=== PATIENT | female | born 1945 | race Caucasian/White ===

== ENCOUNTER → 2017-04-11 | Outpatient (CLI) | payer OTHER, BC ==
[~2017-04-11] VITALS: Ht 152.4 cm; Wt 70.0 kg
[~2017-04-11] MED LIST: ALLERGY25 M2 PO; ASMANEX TW200 MICRO1 IH; BYDUREON2 MG SC; BYETTA PEN250 MCG/M1 SC; CALCIUM 600 MG1 EAC1 PO; CLARITIN,ALAVAR10 MG PO; CYANOCOBALAM1000 MCG PO; ENALAPRIL MALEA10 MG PO; FISH OIL 1,0001 EAC7 PO; FLAX OIL1000 MG PO; LASIX40 MG PO; LOPRESSOR100 M1 PO; LOPRESSOR50 MG PO; LOW DOSE ASPIRI81 M1 PO; NOVOLOG PE100 UNITS/ SC; POTASSIUM-9999 MG PO; PRILOSEC20 MG PO; TOPIRAMATE25 MG PO; TOUJEO SOL300 UNIT/1 SC; TYLENOL EXTRA500 MG PO; VICTOZA 2-0.6 MG/0.1 SC; VITAMIN C1000 MG PO; VITAMIN D1000 INTUN PO; VITAMIN E400 UNIT PO
[2017-04-11 09:30] VITALS: BP 180/80
== END | disposition home or self-care (01) ==
LOC: IVINF 09:18
DX: M81.0 Age-related osteoporosis without current pathological fracture (principal)
CPT/HCPCS: 96365; J3489